=== PATIENT | male | born 2000 | race Caucasian/White ===

== ENCOUNTER 2024-12-30 07:38 | Emergency (ER) | payer OTHER | END 2024-12-30 08:50 | disposition home or self-care (01) | LOC: MW.ED 07:38 | DX: S43.52XA Sprain of left acromioclavicular joint, initial encounter (principal); X50.1XXA Overexertion from prolonged static or awkward postures, initial encounter; Y93.02 Activity, running | CPT/HCPCS: 29105; 73030-26-LT; 73030-LT; 99283 ==